=== PATIENT | female | born 1940 | race Caucasian/White ===

== ENCOUNTER 2016-04-10 12:16 | Day surgery (SDC) | payer OTHER ==
[~2016-04-10] VITALS: Ht 172.7 cm; Wt 88.5 kg
[~2016-04-10 12:16] MED LIST: AMLODIPINE BESYL5 MG PO; ASPIR-TRIN325 M1 PO; AVAPRO150 MG PO; CELEBREX200 MG PO; ELIQUIS5 MG PO; Feosol PO; HYDROCHLOROTHIA25 MG PO; IMODIUM A-D2 M2 PO; LEVO-T100 MCG PO; LOSARTAN POTAS100 MG PO; Levothroid,Synthroid PO; Lopressor PO; METOPROLOL TART25 MG PO; NEXIUM20 MG PO; NORVASC5 MG PO; OMEGA-31000 M1 PO; SENOKOT S,PE1 TABLET PO; VITAMIN D2000 INTUN PO; Vicodin,Lortab 5/500 PO; XANAX0.25 MG PO; Xanax PO; ZEGERID20 MG PO
== END 2016-04-10 15:30 | disposition home or self-care (01) ==
LOC: CATH 12:16
PROC: 5A2204Z Restoration of Cardiac Rhythm, Single (ICD-10-PCS; principal; 2016-04-10)
DX: I48.1 Persistent atrial fibrillation (principal); I10 Essential (primary) hypertension; E03.9 Hypothyroidism, unspecified; Z87.891 Personal history of nicotine dependence
CPT/HCPCS: 93005

== ENCOUNTER 2016-05-15 13:04 | Day surgery (SDC) | payer OTHER ==
[~2016-05-15] VITALS: Ht 172.7 cm; Wt 90.7 kg
[~2016-05-15 13:04] MED LIST changes: +FLECAINIDE ACE100 MG PO
== END 2016-05-15 14:00 | disposition home or self-care (01) ==
LOC: CATH 13:04
PROC: 0WJ8XZZ Inspection of Chest Wall, External Approach (ICD-10-PCS; principal; 2016-05-15)
DX: I48.1 Persistent atrial fibrillation (principal); Z53.09 Procedure and treatment not carried out because of other contraindication; I10 Essential (primary) hypertension; E78.2 Mixed hyperlipidemia